=== PATIENT | female | born 1995 ===

== ENCOUNTER → 2025-01-26 | Outpatient (REF) | payer OTHER ==
[2025-01-26 13:22] LABS: CREATININE, URINE 207.9 MG/DL
[2025-01-26 13:23] LABS: MALB URINE SIEMENS 5.0 MG/L; MAU/CREAT RATIO 2.4 MCG/MG (0.0-30.0)
[2025-01-26 15:29] LABS: ALT/SGPT 85 U/L (7.0-40); AST/SGOT 39 U/L (<34); CALCIUM LEVEL 9.8 MG/DL (8.5-10.1); CARBON DIOXIDE LEVEL 30 MMOL/L (20-31); CHLORIDE LEVEL 101 MMOL/L (98-107); CHOLESTEROL LEVEL 162 MG/DL (<200); CHOLESTEROL RISK RATIO 2.93 (<5); CREATININE FOR GFR 0.77 MG/DL (0.55-1.30); GLOMERULAR FILTRATION RATE > 90.0 (>60); LDL CHOLESTEROL 78.8 MG/DL (<100); NON-HDL-C 106.8 MG/DL; POTASSIUM SERUM 4.4 MMOL/L (3.5-5.1); SODIUM LEVEL 141 MMOL/L (136-145); TRIGLYCERIDES LEVEL 140 MG/DL (<150)
[2025-01-26 15:38] LABS: ESTIMATED AVERAGE GLUCOSE 120.0 MG/DL (60-110)
== END ==
LOC: M LAB REF 12:03
PROVIDERS: ATTEND Pediatrics
DX: R73.03 Prediabetes (principal)